=== PATIENT | male | born 1985 | race Caucasian/White ===

== ENCOUNTER 2016-09-27 18:19 | Emergency (ER) | payer MEDICAID ==
[~2016-09-27] VITALS: Ht 170.2 cm; Wt 137.5 kg
[~2016-09-27 18:19] MED LIST: CYCL-319 PO; ENAL20TA PO; NAPR-260 PO; OMEG1CAP90 PO; OMEP20CA9 PO
[2016-09-27 18:23] VITALS: Ht 170.2 cm; Wt 137.5 kg
[2016-09-27] MEDS ORDERED: hydrOXYzine HCL 10 MG TAB PO ONE (20:00)
[2016-09-27 20:27] VITALS: TEMP 98.7
[2016-09-27 20:42] LABS: ADD SCAN DIFF NO
[2016-09-27] MEDS ORDERED: ASPI-664 PO (20:42)
[2016-09-27] MEDS ORDERED: MULTI PO (20:42)
[2016-09-27 20:44] LABS: BASOPHILS % 0.3 % (0.0-2.0); EOSINOPHILS % 0.2 % (0.0-7.0); HEMATOCRIT 44.5 % (42.0-52.0); HEMOGLOBIN 15.2 g/dl (14.0-18.0); LYMPHOCYTES # 2.6 10^3/ul (0.8-2.9); LYMPHOCYTES % 23.1 % (15.0-51.0); MEAN CORPUSCULAR HEMOGLOBIN 30.1 pg (29.0-33.0); MEAN CORPUSCULAR HGB CONC 34.2 g/dl (32.0-37.0); MEAN CORPUSCULAR VOLUME 88.1 fl (82.0-101.0); MONOCYTE # 0.6 10^3/ul (0.3-0.9); MONOCYTES % 5.4 % (0.0-11.0); NEUTROPHIL # 7.8 10^3/ul (1.6-7.5); NEUTROPHILS % 70.6 % (39.0-77.0); PLATELET COUNT 242 10^3/UL (140-415); RED BLOOD COUNT 5.05 10^6/ul (4.70-6.10); RED CELL DISTRIBUTION WIDTH 14.2 % (11.5-14.5); WHITE BLOOD COUNT 11.1 10^3/ul (4.8-10.8)
[2016-09-27 21:05] LABS: CHLORIDE 97 mmol/L (97-110); SODIUM 134 mmol/L (135-144)
[2016-09-27 21:06] LABS: POTASSIUM 4.2 mmol/L (3.5-5.1)
--- NOTE | 2016-09-27 21:06 | RADRPT ---
PROCEDURE: XR Chest AP portable CLINICAL INDICATION: Chest pain TECHNIQUE: An AP portable radiograph of the chest was submitted. COMPARISON: 03/18/2014 FINDINGS: Support Hardware: None Cardiovascular: The heart remains upper normal in size with the pulmonary vasculature appearing unre markable. Lung Garza: The lung garza appear clear with no nodule, alveolar infiltrate, or interstitial promi nence evident. Pleural Spaces: No pneumothorax or pleural effusion is identified. Osseous Structures: The osseous structures appear intact. Soft Tissues: The soft tissues appear generous. IMPRESSION: Stable unremarkable portable chest. Physician Ricci Date Time Electronically viewed and signed by Physician Ricci on 09/27/2016 21:06 /
[2016-09-27 21:08] LABS: ANION GAP 15 (8-16); CARBON DIOXIDE 26 mmol/L (21-31); CREATININE 0.78 mg/dl (0.61-1.24)
[2016-09-27 21:09] LABS: BLOOD UREA NITROGEN 13 mg/dl (7-20); CALCIUM 9.6 mg/dl (8.4-10.2); GLUCOSE 113 mg/dl (70-220)
[2016-09-27 21:10] LABS: INR 0.96; PARTIAL THROMBOPLASTIN TIME 31.5 Sec (25.0-35.0); PROTIME 12.8 Sec (12.2-14.2)
[2016-09-27 21:22] LABS: TROPONIN-I < 0.012 ng/ml (0.00-0.12)
--- NOTE | 2016-09-27 21:49 | ERA ---
ER Documentation Chief Complaint Date/Time DATE: 09/27/16 TIME: 21:45 Chief Complaint feeling anxious/sob x 1 day. lungs clear. no sob in intake HPI This is a 30-year-old male who presents to the emerge in for evaluation of anxiety, shortness of breath. The patient states that he has had the symptoms for 1 day. He also states that he has some palpitations. The patient denies any drug use, came to the emergency room for evaluation. He denies any active chest pain at this time and denies any aggravating or relieving factors for his discomfort. ROS All systems reviewed and are negative except as per history of present illness. Medications Home Meds Reported Medications Aspirin (Low Dose Aspirin) 81 Mg Tablet., 81 MG PO DAILY, #30 TAB 09/27/16 Multivitamins* (Theragran*) 1 Tab Tab, 1 TAB PO DAILY, TAB 09/27/16 Discontinued Reported Medications Fish Oil/[place]-3 Fatty Acids ([place] 3 Fish Oil 1,000 Mg Cap) 1 Cap Capsule, 1 CAP PO DAILY 03/19/14 Enalapril Maleate* (Enalapril Maleate*) 20 Mg Tablet, 20 MG PO DAILY, TAB 03/19/14 Discontinued Scripts Naproxen* (Naprosyn*) 500 Mg Tablet, 500 MG PO BID Y for PAIN AND/OR INFLAMMATION, #30 TAB Prov:JOSE CARLOS AUGUST PA-C 03/19/16 Cyclobenzaprine Hcl* (Cyclobenzaprine Hcl*) 10 Mg Tablet, 10 MG PO QHS, #20 TAB Prov:JOSE CARLOS AUGUST PA-C 03/19/16 Omeprazole* (Prilosec*) 20 Mg Capsule., 20 MG PO DAILY for 30 Days, CAP Prov:ABIGAIL FOY 03/19/14 Allergies Allergies: Coded Allergies: No Known Allergy (Verified , 09/27/16) PMhx/Soc History of Surgery: Yes (eye operation as a kid) Anesthesia Reaction: No Hx Neurological Disorder: Yes (restless legs) Hx Respiratory Disorders: No Hx Cardiac Disorders: Yes (HTN, high cholesterol) Hx Psychiatric Problems: Yes (anxiety ) Hx Miscellaneous Medical Probl: No Hx Alcohol Use: Yes (occasional drinker LAST NIGHT BEER) Hx Substance Use: Yes (quit marijuana in high school) Hx Tobacco Use: Yes Smoking Status: Current some day smoker Physical Exam Vitals Vital Signs Date Time Temp Pulse Resp B/P Pulse Ox O2 Delivery O2 Flow Rate FiO2 09/27/16 20:27 98.7 84 18 177/102 97 Room Air 09/27/16 18:23 98.7 18 174/96 100 Physical Exam INITIAL VITAL SIGNS: Reviewed by me GENERAL: The patient is well developed and appropriate for usual state of health in no apparent distress HEENT: Pupils equal, round, and reactive to light. EOMI. There is no scleral icterus. NECK: C-spine is soft and supple, there is no meningismus. There is no cervical lymphadenopathy. LUNGS: Clear to auscultation bilaterally. There are no rales, wheezes or rhonchi. HEART: Regular rate and rhythm, no murmurs, clicks, rubs or gallops. ABDOMEN: Soft, non-tender, non-distended. There are bowel sounds in all four quadrants. No rebound or guarding. EXTREMITIES: Left upper extremity congenital deformity, there is no peripheral cyanosis or edema. No focal swelling or erythema. NEUROLOGICAL: The patient moves all four extremities with 5/5 strength. Cranial nerves II - XII are intact. Normal gait. Alert and oriented SKIN: There is no apparent rash or petechiae. HEME/LYMPHATIC: There is no evidence of excessive bruising or lymphedema. PSYCHIATRIC: The patient does not appear anxious or depressed. Result Diagram: 09/27/16202409/27/162024 Results 24 hrs Laboratory Tests Test 09/27/16 20:25 White Blood Count 11.110^3/ul Red Blood Count 5.0510^6/ul Hemoglobin 15.2g/dl Hematocrit 44.5% Mean Corpuscular Volume 88.1fl Mean Corpuscular Hemoglobin 30.1pg Mean Corpuscular Hemoglobin Concent 34.2g/dl Red Cell Distribution Width 14.2% Platelet Count 98236^3/UL Mean Platelet Volume 11.0fl Neutrophils % 70.6% Lymphocytes % 23.1% Monocytes % 5.4% Eosinophils % 0.2% Basophils % 0.3% Nucleated Red Blood Cells % 0.0/100WBC Neutrophils # 7.810^3/ul Lymphocytes # 2.610^3/ul Monocytes # 0.610^3/ul Eosinophils # 0.010^3/ul Basophils # 0.010^3/ul Nucleated Red Blood Cells # 0.010^3/ul Prothrombin Time 12.8Sec Prothrombin Time Ratio 1.0 INR International Normalized Ratio 0.96 Activated Partial Thromboplast Time 31.5Sec Sodium Level 134mmol/L Potassium Level 4.2mmol/L Chloride Level 97mmol/L Carbon Dioxide Level 26mmol/L Anion Gap 15 Blood Urea Nitrogen 13mg/dl Creatinine 0.78mg/dl Glucose Level 113mg/dl Calcium Level 9.6mg/dl Troponin I < 0.012ng/ml Current Medications Medications (Trade) Dose Ordered Sig/Madeline Route PRN Reason Start Time Stop Time Status Last Admin Dose Admin Hydroxyzine HCl (Atarax) 10 mg ONCE ONCE PO 09/27/16 20:00 09/27/16 20:01 DC 09/27/16 20:12 Procedures/MDM EKG: Rate/Rhythm: Hccjl-Awruzaepk-Lozev QRS, ST, T-waves: [No changes consistent w/ acute ischemia] Impression: [No evidence of ischemia or arrhythmia] EKG: #2 Rate/Rhythm: Eqtdb-Zmzwmznxv-Nwfpb QRS, ST, T-waves: [No changes consistent w/ acute ischemia] Impression: [No evidence of ischemia or arrhythmia] Chest X-ray 1V Interpreted by me: Soft Tissue: No acute abnormalities Bones: No acute abnormalities Mediastinum/Cardiac Silhouette/Lungs: [No acute abnormalities] This 30-year-old male presents to the emergency room for evaluation of palpitations. When I evaluated this patient is EKG did show Mauro-Parkinson- White pattern. Lab work was obtained including troponin which was normal. His second EKG also confirms a Zwiex-Bnwkrygar-Buzvy take an approximate 1 hour after his initial EKG. Chest x-ray is clear. Advised patient that he needs to stay in the hospital for cardiac evaluation and possible medication. The patient states that he cannot stay in the hospital because he has to take care of his grandmother. I advise against him leaving due to the fact that he could decompensate into a life-threatening arrhythmia. The patient verbalized understanding however is adamant about leaving. The patient has capacity to make medical decisions and is aware of the risks of leaving including risk of . The patient will be discharged AGAINST MEDICAL ADVICE with instructions to return immediately to the emergency room if he were to change his mind for admission. Against Medical Advice Note The patient verbalized understanding of risks of signing out against medical advice including and disability. The patient explained to me the reason for wanting to sign out against medical advice, [default value]. The patient is alert and oriented x 3 with decisional capacity and competence to sign out. They were welcomed to come back to ER and will be going home with discharge paperwork. Departure Diagnosis: Primary Impression: Mauro Parkinson White pattern seen on electrocardiogram Additional Impressions: Anxiety Heart palpitations Condition: Fair JHON NAYAK DO Sep 27, 2016 21:49
[2016-09-27 22:26] VITALS: BP 165/98; PULSE 95; RESP 16
== END 2016-09-27 22:35 | disposition home or self-care (01) ==
LOC: E/R 18:19
DX: I45.6 Pre-excitation syndrome (principal); F41.9 Anxiety disorder, unspecified; R00.2 Palpitations; I10 Essential (primary) hypertension; F17.210 Nicotine dependence, cigarettes, uncomplicated; Z79.82 Long term (current) use of aspirin
CPT/HCPCS: 36415; 71010; 80048; 84484; 85025; 85610; 85730; 93005; Z7502; Z7610

== ENCOUNTER 2018-12-10 12:41 | Emergency (ER) | payer BC, MEDICAID ==
[~2018-12-10] VITALS: Ht 152.4 cm; Wt 108.0 kg
[~2018-12-10 12:41] MED LIST changes: +CEPH-443 PO; -CYCL-319 PO; -ENAL20TA PO; -NAPR-260 PO; -OMEG1CAP90 PO; -OMEP20CA9 PO; +SULF1TAB31 PO
[2018-12-10 12:52] VITALS: Ht 152.4 cm; Wt 108.0 kg
[2018-12-10] MEDS ORDERED: SOD CHLORIDE 0.9% 1,000 ML IV STA (17:03)
--- NOTE | 2018-12-10 17:17 | ERD ---
ER Documentation Chief Complaint Chief Complaint ALCOHOL WITHDRAWL LAST DRINK YESTERDAY HPI This is a 33-year-old male who states that he has been on a recent binge drinking episode for the past couple of days. He says that he does abuse alcohol from time to time. He says that his last drink was yesterday evening and this morning is having a lot of tremors and shakes but he says are getting better. Denies any headache denies chest pain shortness of breath abdominal pain no vomiting or diarrhea. He says he feels better because he drank a much of water and feels like he was just dehydrated ROS All systems reviewed and are negative except as per history of present illness. Medications Home Meds Active Scripts Cephalexin* (Keflex*) 500 Mg Capsule, 500 MG PO QID for 7 Days, CAP Prov:DAWN TELLO MD 07/23/18 Sulfamethoxazole/Trimethoprim* (Bactrim Ds* Tablet) 1 Each Tablet, 1 TAB PO BID, #14 TAB Prov:DAWN TELLO MD 07/23/18 Allergies Allergies: Coded Allergies: No Known Allergy (Verified , 07/23/18) PMhx/Soc History of Surgery: Yes (eye operation as a kid) Anesthesia Reaction: No Hx Neurological Disorder: Yes (restless legs) Hx Respiratory Disorders: No Hx Cardiac Disorders: Yes (HTN, high cholesterol) Hx Psychiatric Problems: Yes (anxiety ) Hx Miscellaneous Medical Probl: Yes (azul parkinson evie syndrome) Hx Alcohol Use: Yes (social 3-4 beers but has episodes of binge drinking) Hx Substance Use: Yes (quit marijuana in high school) Hx Tobacco Use: Yes Smoking Status: Former smoker FmHx Family History: No coronary disease Physical Exam Vitals Vital Signs Date Temp Pulse Resp B/P (MAP) Pulse Ox O2 O2 Flow FiO2 Time Delivery Rate 12/10/18 90 18 162/84 100 Room Air 17:26 (110) 12/10/18 98.0 109 18 149/81 99 12:52 (103) Physical Exam Const: Well-developed, well-nourished Head: Atraumatic, normocephalic Eyes: Normal Conjunctiva, PERRLA, EOMI, normal sclera, no nystagmus ENT: Normal External Ears, Nose and Mouth, moist mucus membranes. Neck: Full range of motion. No meningismus, no lymphadenopathy. Resp: Clear to auscultation bilaterally, no wheezing, rhonchi, rales Cardio: Regular rate and rhythm, no murmurs, S1 S2 present Abd: Soft, non tender x 4, non distended. Normal bowel sounds, no guarding or rebound, no pulsitile abdominal masses or bruits Skin: No petechiae or rashes, no ecchymosis , no maculopapular rash Back: No midline or flank tenderness Ext: No cyanosis, or edema, FROM x 4, normal inspection, neurovascularly intact x 4 Neur: Awake and alert, STR 5/5 x 4, sensation intact x 4, no focal findings, cerebellum intact Psych: Normal Mood and Affect Result Diagram: 12/10/18 171 Results 24 hrs Laboratory Tests Test 12/10/18 17:19 Sodium Level 136 mmol/L Potassium Level 4.2 mmol/L Chloride Level 99 mmol/L Carbon Dioxide Level 23 mmol/L Anion Gap 14 Blood Urea Nitrogen 11 mg/dl Creatinine 0.62 mg/dl Est Glomerular Filtrat Rate mL/min > 60 mL/min Glucose Level 106 mg/dl Calcium Level 8.9 mg/dl Total Bilirubin 1.5 mg/dl Direct Bilirubin 0.00 mg/dl Indirect Bilirubin 1.5 mg/dl Aspartate Amino Transf (AST/SGOT) 64 IU/L Alanine Aminotransferase (ALT/SGPT) 69 IU/L Alkaline Phosphatase 102 IU/L Total Protein 8.4 g/dl Albumin 4.6 g/dl Globulin 3.80 g/dl Albumin/Globulin Ratio 1.21 Current Medications Medications Dose Sig/Madeline Start Time Status Last (Trade) Ordered Route PRN Stop Time Admin Dose Reason Admin Sodium 1,000 ml @ Q1H STAT 12/10/18 DC 12/10/18 Chloride 1,000 mls/hr IV 17:03 12/10/18 17:17 18:02 Lorazepam 1 mg ONCE ONCE 12/10/18 DC 12/10/18 (Ativan) IV 17:30 12/10/18 17:28 17:31 Procedures/MDM After fluids and Ativan the patient is much better. His labs are stable. Patient was advised to stop drinking alcohol discharge with Ativan for any further mild withdrawal symptoms he is having. He is safe for discharge Departure Diagnosis: Primary Impression: Alcohol withdrawal syndrome Complication of substance-induced condition: uncomplicated Qualified Codes: F10.230 - Alcohol dependence with withdrawal, uncomplicated Condition: Stable CHULA WISE DO Dec 10, 2018 17:17
[2018-12-10] MEDS ORDERED: LORAZEPAM 2 MG INJ IV ONE (17:30)
[2018-12-10] MEDS ORDERED: LORA1TAB PO (18:41)
[2018-12-10 19:08] VITALS: BP 149/84; PULSE 78; RESP 24
== END 2018-12-10 19:10 | disposition home or self-care (01) ==
LOC: E/R 12:41
DX: F10.230 Alcohol dependence with withdrawal, uncomplicated (principal); I10 Essential (primary) hypertension; Z87.891 Personal history of nicotine dependence
CPT/HCPCS: 36415; 80053; 96374; 99284; J2060; J7030